=== PATIENT | male | born 1995 | race African-American/Black ===

== ENCOUNTER 2018-06-05 10:34 | Inpatient (IN) | payer MEDICAID, OTHER ==
[~2018-06-05] VITALS: Ht 175.3 cm; Wt 72.6 kg
[2018-06-05] MEDS ORDERED: MORPHINE SULFATE 4 MG/ML CPJ (NOT FOR IM USE) IV STA (12:01)
[2018-06-05] MEDS ORDERED: ONDANSETRON HCL 4MG/2ML INJ IV STA (12:01)
[2018-06-05] MEDS ORDERED: SODIUM CHLORIDE 0.9% 1,000 ML IV ONE (12:01)
[2018-06-05 12:53] LABS: HEMATOCRIT. 42.8 % (42.0-52.0); HEMOGLOBIN. 14.6 g/dL (14.0-18.0); MEAN CORPUSCULAR HEMOGLOBIN 25.3 pg (28.0-32.0); MEAN CORPUSCULAR VOLUME 73.9 fL (80.0-94.0); RED BLOOD CELL COUNT 5.79 mill/uL (4.7-6.1); RED CELL DISTRIBUTION WIDTH 16.7 % (11.6-14.6)
[2018-06-05 12:59] LABS: CHLORIDE 108 mEq/L (98-107)
[2018-06-05 13:00] LABS: INR 1.2; PROTHROMBIN TIME 12.1 sec (9.1-11.1)
[2018-06-05 13:01] LABS: CLARITY URINE CLEAR (CLEAR); COLOR URINE YELLOW (YELLOW); KETONES URINE NEGATIVE (NEGATIVE); LEUKOCYTE ESTERASE URINE NEGATIVE (NEGATIVE); NITRITE URINE NEGATIVE (NEGATIVE); OCCULT BLOOD URINE NEGATIVE (NEGATIVE); PH URINE 5.5 (4.5-8.0); PROTEIN URINE NEGATIVE (NEGATIVE); SPECIFIC GRAVITY URINE 1.014 (1.005-1.030)
[2018-06-05 13:03] LABS: ETHANOL BLOOD < 10 mg/dL
[2018-06-05] MEDS ORDERED: KETOROLAC 30MG/ML VIAL IV ONE (13:30)
[2018-06-05 13:31] LABS: NUCLEATED RED BLOOD CELLS 5 /100 WBC
[2018-06-05 13:32] LABS: MEAN PLATELET VOLUME 8.6 fl (7.4-10.4); PLATELET 205 x1000/uL (130-400)
[2018-06-05 13:34] LABS: PLATELET ESTIMATE NORMAL
[2018-06-05] MEDS: SODIUM CHLORIDE 0.45% 1,000 ML IV SCH ×2 (13:55→20:29)
[2018-06-05] MEDS ORDERED: DOCUSATE SODIUM 100MG CAPSULE PO PRN (14:00)
[2018-06-05] MEDS ORDERED: LORAZEPAM 2MG/ML CPJ IV PRN (14:00)
[2018-06-05] MEDS ORDERED: ACETAMINOPHEN 325MG TABLET PO PRN (14:00)
[2018-06-05] MEDS ORDERED: MAGNESIUM/ALUMINUM HYDROXIDE/SIMETHICONE 30ML UDC PO PRN (14:00)
[2018-06-05] MEDS ORDERED: NA PHOS,M-B/NA PHOS,DI-BA ENEMA 118ML PR PRN (14:00)
[2018-06-05] MEDS ORDERED: CLONIDINE 0.1MG TABLET PO PRN (14:00)
[2018-06-05] MEDS ORDERED: DIPHENHYDRAMINE 50MG/ML VIAL IV PRN (14:00)
[2018-06-05] MEDS ORDERED: IPRATROPIUM/ALBUTEROL 0.5-3(2.5)MG/3ML NEB INH PRN (14:00)
[2018-06-05] MEDS ORDERED: GUAIFENESIN 200MG/10ML SUGAR FREE UDC PO PRN (14:00)
[2018-06-05 14:04] LABS: *AMPHETAMINES SCREEN URINE NEGATIVE (NEGATIVE); CANNABINOID URINE SCREEN PRESUMTIVE POSITIVE (NEGATIVE); OPIATES URINE SCREEN NEGATIVE (NEGATIVE); PHENCYCLIDINE URINE SCREEN NEGATIVE (NEGATIVE)
[2018-06-05 14:05] LABS: METHADONE URINE SCREEN NEGATIVE (NEGATIVE)
[2018-06-05 14:06] LABS: *BARBITURATES SCREEN URINE NEGATIVE (NEGATIVE)
[2018-06-05 14:07] LABS: *BENZODIAZEPINES SCREEN URINE NEGATIVE (NEGATIVE); *COCAINE SCREEN URINE NEGATIVE (NEGATIVE)
[2018-06-05 14:49] LABS: CHLORIDE 112 mEq/L (98-107)
[2018-06-05 20:00] VITALS: BP 135/102
[2018-06-05] MEDS: ONDANSETRON HCL 4MG/2ML INJ IV PRN (21:19)
[2018-06-05] MEDS: MORPHINE SULFATE 4 MG/ML CPJ (NOT FOR IM USE) IV PRN (21:20)
[2018-06-05 22:00] VITALS: BP 123/88
[2018-06-05] MEDS: HYDROCODONE/ACETAMINOPHEN 10/325MG TABLET PO PRN (23:37)
[2018-06-06] MEDS: ONDANSETRON HCL 4MG/2ML INJ IV PRN (06:41)
[2018-06-06] MEDS: MORPHINE SULFATE 4 MG/ML CPJ (NOT FOR IM USE) IV PRN (06:43)
[2018-06-06 08:00] VITALS: BP 115/61
[2018-06-06 08:45] VITALS: BP 105/54
[2018-06-06] MEDS: HYDROCODONE/ACETAMINOPHEN 10/325MG TABLET PO PRN (08:45)
[2018-06-06] MEDS: SODIUM CHLORIDE 0.45% 1,000 ML IV SCH (08:49)
[2018-06-06] MEDS ORDERED: ENOXAPARIN 40MG/0.4ML SYR SUBCUT SCH (09:00)
[2018-06-06] MEDS ORDERED: ASPIRIN 81MG EC TABLET PO SCH (09:00)
== END 2018-06-06 09:59 | disposition left against medical advice (07) | DRG 662 ==
LOC: ER 13:53 → EDBEDREQSVC 14:12 → EDBEDREQ 14:12 → EDBEDREQTM 14:12 → 6EST 14:12 → ENRESERV 19:40 → EDBEDREQ 20:31
PROVIDERS: ADMIT Internal Medicine; ATTEND Internal Medicine
DX: D57.00 Hb-SS disease with crisis, unspecified (principal); E86.0 Dehydration; Z53.21 Procedure and treatment not carried out due to patient leaving prior to being seen by health care provider
CPT/HCPCS: 36415; 71045; 80048; 80305; 83605; 84484; 85044; 85660; 86850; 86900; 93005; 96361; 96374; 96375; 99285; G0482; J1650; J1885; J2060; J2270; J2405; J7030

== ENCOUNTER 2018-11-12 17:03 | Inpatient (IN) | payer MEDICAID ==
[~2018-11-12] VITALS: Ht 154.3 cm; Wt 68.7 kg
[2018-11-12] MEDS ORDERED: MORPHINE SULFATE 4 MG/ML CPJ (NOT FOR IM USE) IV ONE ×2 (19:30→20:30)
[2018-11-12] MEDS ORDERED: KETOROLAC 30MG/ML VIAL IV ONE (19:30)
[2018-11-12 19:50] LABS: BASOPHILS % 1.9 % (0.0-2.0); EOSINOPHILS % 1.8 % (0.0-5.0); HEMATOCRIT. 37.6 % (42.0-52.0); LYMPHOCYTES % 34.4 % (20.0-50.0); MEAN CORPUSCULAR HEMOGLOBIN 25.2 pg (28.0-32.0); MEAN PLATELET VOLUME 8.2 fl (7.4-10.4); MONOCYTES % 7.7 % (2.0-8.0); NEUTROPHILS % 54.2 % (40.0-76.0); PLATELET 186 x1000/uL (130-400); RED BLOOD CELL COUNT 5.15 mill/uL (4.7-6.1); RED CELL DISTRIBUTION WIDTH 17.5 % (11.6-14.6)
[2018-11-12] MEDS ORDERED: DIPHENHYDRAMINE 50MG/ML VIAL IV ONE (20:30)
[2018-11-12] MEDS ORDERED: SODIUM CHLORIDE 0.9% 500 ML IV ONE (20:30)
[2018-11-12] MEDS ORDERED: HYDROMORPHONE HCL 2MG TABLET PO ONE ×2 (21:45→22:45)
[2018-11-13] MEDS ORDERED: HYDROMORPHONE HCL/PF 2MG/ML CPJ IV ONE ×2 (00:45→03:15)
[2018-11-13] MEDS ORDERED: DIPHENHYDRAMINE 50MG/ML VIAL IV ONE (01:15)
[2018-11-13 06:00] VITALS: BP 125/76
[2018-11-13] MEDS ORDERED: HYDROCODONE/ACETAMINOPHEN 5/325MG TABLET PO PRN (06:45)
[2018-11-13] MEDS ORDERED: ONDANSETRON HCL 4MG/2ML INJ IV PRN (06:45)
[2018-11-13] MEDS: MORPHINE SULFATE 2 MG/ML CPJ (NOT FOR IM USE) IV PRN ×2 (07:07→07:09)
[2018-11-13 08:00] VITALS: BP 137/62
[2018-11-13] MEDS ORDERED: SODIUM CHLORIDE 0.9% 1,000 ML IV SCH (08:15)
[2018-11-13] MEDS ORDERED: FOLIC ACID 1MG TABLET PO SCH (09:00)
[2018-11-13 10:16] LABS: BASOPHILS % 1.2 % (0.0-2.0); EOSINOPHILS % 2.1 % (0.0-5.0); HEMATOCRIT. 40.1 % (42.0-52.0); HEMOGLOBIN. 13.6 g/dL (14.0-18.0); LYMPHOCYTES % 27.7 % (20.0-50.0); MEAN CORPUSCULAR HEMOGLOBIN 24.8 pg (28.0-32.0); MEAN CORPUSCULAR VOLUME 73.2 fL (80.0-94.0); MEAN PLATELET VOLUME 8.7 fl (7.4-10.4); MONOCYTES % 8.1 % (2.0-8.0); NEUTROPHILS % 60.9 % (40.0-76.0); PLATELET 194 x1000/uL (130-400); RED BLOOD CELL COUNT 5.47 mill/uL (4.7-6.1); RED CELL DISTRIBUTION WIDTH 17.2 % (11.6-14.6)
[2018-11-13 10:17] LABS: CHLORIDE 105 mEq/L (98-107)
[2018-11-13] MEDS ORDERED: ENOXAPARIN 40MG/0.4ML SYR SUBCUT SCH (11:30)
[2018-11-13] MEDS ORDERED: HYDROCODONE/ACETAMINOPHEN 10/325MG TABLET PO PRN (11:30)
[2018-11-13] MEDS ORDERED: HYDROMORPHONE HCL/PF 2MG/ML CPJ IV PRN (11:30)
[2018-11-13 12:00] VITALS: BP 124/75
[2018-11-13 14:19] LABS: CLARITY URINE CLEAR (CLEAR); COLOR URINE YELLOW (YELLOW); KETONES URINE NEGATIVE (NEGATIVE); LEUKOCYTE ESTERASE URINE TRACE (NEGATIVE); NITRITE URINE NEGATIVE (NEGATIVE); OCCULT BLOOD URINE NEGATIVE (NEGATIVE); PH URINE 8.5 (4.5-8.0); PROTEIN URINE NEGATIVE (NEGATIVE); SPECIFIC GRAVITY URINE 1.008 (1.005-1.030)
== END 2018-11-13 12:20 | disposition left against medical advice (07) | DRG 662 ==
LOC: ER 17:03 → 6EST 11-13 00:51 → EDBEDREQ 11-13 00:52 → EDBEDREQTM 11-13 00:52 → ENRESERV 11-13 02:23 → ER 11-13 04:53 → 6EST 11-13 07:45
PROVIDERS: ADMIT Internal Medicine; ATTEND Internal Medicine
DX: D57.00 Hb-SS disease with crisis, unspecified (principal); F12.90 Cannabis use, unspecified, uncomplicated; Z53.21 Procedure and treatment not carried out due to patient leaving prior to being seen by health care provider
CPT/HCPCS: 36415; 85044; 96374; 99285; J1170; J1200; J1650; J1885; J2270; J7040

== ENCOUNTER 2019-10-28 03:02 | Emergency (ER) | payer MEDICAID ==
[~2019-10-28] VITALS: Ht 172.7 cm; Wt 78.0 kg
[2019-10-28] MEDS ORDERED: KETOROLAC 30MG/ML VIAL IM ONE (03:30)
[2019-10-28] MEDS ORDERED: CYCLOBENZAPRINE 10MG TABLET PO ONE (03:30)
[2019-10-28 03:36] VITALS: BP 100/76
== END 2019-10-28 03:51 | disposition home or self-care (01) ==
LOC: ER 03:02
DX: S39.92XA Unspecified injury of lower back, initial encounter (principal); F12.10 Cannabis abuse, uncomplicated; Z88.6 Allergy status to analgesic agent; X58.XXXA Exposure to other specified factors, initial encounter; Y93.89 Activity, other specified; Y92.89 Other specified places as the place of occurrence of the external cause; Y99.8 Other external cause status
CPT/HCPCS: 96372; 99283; J1885

== ENCOUNTER 2024-03-23 03:24 | Emergency (ER) | payer MEDICAID, OTHER ==
[~2024-03-23] VITALS: Ht 180.3 cm; Wt 73.0 kg
[2024-03-23 03:47] VITALS: O2SAT 100
[2024-03-23 04:39] LABS: BASOPHILS % 1.3 % (0.0-2.0); DIFFERENTIAL COMMENT 0; EOSINOPHILS % 2.6 % (0.0-5.0); HEMOGLOBIN. 13.6 g/dL (14.0-18.0); LYMPHOCYTES % 46.7 % (20.0-50.0); MEAN CORPUSCULAR HEMOGLOBIN 26.9 pg (28.0-32.0); MEAN CORPUSCULAR HGB CONC 33.9 g/dL (31.0-37.0); MEAN CORPUSCULAR VOLUME 79.4 fL (80.0-94.0); MEAN PLATELET VOLUME 8.5 fl (7.4-10.4); MONOCYTES % 10.5 % (2.0-8.0); NEUTROPHILS % 38.9 % (40.0-76.0); PLATELET 189 x1000/uL (130-400); RED BLOOD CELL COUNT 5.04 mill/uL (4.7-6.1); RED CELL DISTRIBUTION WIDTH 16.7 % (11.6-14.6); WHITE BLOOD COUNT 11.6 x1000/uL (4.5-11.0)
[2024-03-23] MEDS: ONDANSETRON HCL 4MG/2ML INJ IV ONE (04:39)
[2024-03-23] MEDS: SODIUM CHLORIDE 0.9% 1,000 ML IV ONE (04:39)
[2024-03-23] MEDS: KETOROLAC 15MG/ML VIAL IV ONE (04:39)
[2024-03-23 04:46] LABS: CHLORIDE 106 mEq/L (98-107); POTASSIUM 4.3 mEq/L (3.5-5.1); SODIUM 139 mEq/L (136-145)
[2024-03-23 04:47] LABS: CALCIUM 9.2 mg/dL (8.7-10.4); CARBON DIOXIDE 29 mEq/L (21-32)
[2024-03-23 04:52] LABS: CREATININE 1.2 mg/dL (0.6-1.3); GLUCOSE 78 mg/dL (70-105); UREA NITROGEN BLOOD 14 mg/dL (9-23)
[2024-03-23 05:46] VITALS: BP 134/81; PULSE 62; RESP 18; TEMP 37.00296; O2SAT 100
== END 2024-03-23 05:48 | disposition home or self-care (01) ==
LOC: ER 03:24
DX: M79.10 Myalgia, unspecified site (principal); F12.90 Cannabis use, unspecified, uncomplicated; Z88.5 Allergy status to narcotic agent
CPT/HCPCS: 80048; 85025; 85044; 36415; 96361; 96374; 96375; 99284; J1885; J2405; J7030; Z7610 ×2